=== PATIENT | female | born 1995 | race Two or more races ===

== ENCOUNTER 2021-04-24 01:39 | Inpatient (IN) | payer OTHER ==
[~2021-04-24] VITALS: Ht 152.4 cm; Wt 90.7 kg
[2021-04-24] MEDS ORDERED: CHILDREN'S ASPI81 MG PO (03:21)
[2021-04-24] MEDS ORDERED: PRENATAL CAPLE1 EAC1 PO (03:21)
== END 2021-04-26 11:09 | disposition home or self-care (01) | DRG 833 ==
LOC: LDR 01:39
PROVIDERS: ADMIT Specialist; ATTEND Specialist
PROC: 4A1HXFZ Monitoring of Products of Conception, Cardiac Rhythm, External Approach (ICD-10-PCS; principal; 2021-04-24)
PROC: BY4FZZZ Ultrasonography of Third Trimester, Single Fetus (ICD-10-PCS; 2021-04-24)
DX: O47.03 False labor before 37 completed weeks of gestation, third trimester (principal); Z3A.35 35 weeks gestation of pregnancy

== ENCOUNTER 2021-05-08 22:00 | Inpatient (IN) | payer OTHER ==
[~2021-05-08] VITALS: Ht 152.4 cm; Wt 87.1 kg
[~2021-05-08 22:00] MED LIST: CHILDREN'S ASPI81 MG PO; PRENATAL CAPLE1 EAC1 PO
== END 2021-05-09 08:56 | disposition home or self-care (01) | DRG 833 ==
LOC: LDR 22:00
PROVIDERS: ADMIT Specialist; ATTEND Specialist
PROC: 4A1HXFZ Monitoring of Products of Conception, Cardiac Rhythm, External Approach (ICD-10-PCS; principal; 2021-05-08)
DX: O47.1 False labor at or after 37 completed weeks of gestation (principal); Z3A.37 37 weeks gestation of pregnancy

== ENCOUNTER 2021-05-11 00:57 | Inpatient (IN) | payer OTHER ==
[~2021-05-11] VITALS: Ht 152.4 cm; Wt 88.0 kg
== END 2021-05-13 18:05 | disposition home or self-care (01) | DRG 806 ==
LOC: LDR 00:57 → O/R 10:56 → LDR 10:57 → O/R 05-12 11:34 → LDR 05-12 11:52 → OB/GYN 05-12 14:56
PROVIDERS: ADMIT Specialist; ATTEND Specialist
PROC: 10E0XZZ Delivery of Products of Conception, External Approach (ICD-10-PCS; principal; 2021-05-11)
PROC: 0UQG7ZZ Repair Vagina, Via Natural or Artificial Opening (ICD-10-PCS; 2021-05-11)
PROC: 4A1HXFZ Monitoring of Products of Conception, Cardiac Rhythm, External Approach (ICD-10-PCS; 2021-05-11)
DX: O42.02 Full-term premature rupture of membranes, onset of labor within 24 hours of rupture (principal); O71.4 Obstetric high vaginal laceration alone; Z37.0 Single live birth; O99.824 Streptococcus B carrier state complicating childbirth; Z3A.37 37 weeks gestation of pregnancy

== ENCOUNTER 2024-06-08 10:09 | Inpatient (IN) | payer OTHER ==
[~2024-06-08] VITALS: Ht 152.4 cm; Wt 93.0 kg
[2024-06-08] VITALS (8 sets, daily range): BP systolic 109–118; BP diastolic 43–79; O2SAT 97
[2024-06-08] MEDS ORDERED: RINGERS SOLUTION,LACTATED 1,000 ML IV SCH (10:30)
[2024-06-08] MEDS ORDERED: CEFAZOLIN SODIUM 1,000 MG VIAL IV ONE (10:30)
[2024-06-08 11:19] LABS: HEMATOCRIT 36.7 % (36.0-45.00); HEMOGLOBIN 12.7 g/dL (12.0-15.00); MEAN CELL VOLUME 84.1 fL (80.00-100.00); MEAN CORPUSCULAR HEMOGLOBIN 29.1 pg (27.00-32.0); MEAN CORPUSCULAR HGB CONC 34.6 g/dl (32.0-36.0); PLATELET COUNT 226 K/uL (150-450); RED BLOOD COUNT 4.36 M/uL (4.00-6.00)
[2024-06-08 11:28] LABS: PH,URINE 6.5 (5.0-8.0); URINE APPEARANCE Clear; URINE BILIRRUBIN Negative (NEGATIVE); URINE BLOOD Large; URINE COLOR Yellow; URINE GLUCOSE Negative (NEGATIVE); URINE KETONE Negative (NEGATIVE); URINE LEUKOCYTE Large; URINE NITRATE Negative; URINE PROTEIN Trace (NEGATIVE); URINE UROBILINOGEN 0.2 E.U./dl
[2024-06-08 11:32] LABS: URINE BACTERIA 474.9 uL (0.0-1933); URINE RBC 1162.2 uL (0.0-20.8); URINE WBC 260.6 uL (0.0-23.2)
[2024-06-08 11:43] LABS: URINE CAST 0.58 uL (0.0-1.40)
[2024-06-08] MEDS ORDERED: CEFAZOLIN SODIUM 1,000 MG VIAL IV SCH (12:00)
[2024-06-08] MEDS ORDERED: TERBUTALINE SULFATE 1 MG/ML AMPUL SUBCUTANEO ONE (13:15)
[2024-06-08] MEDS ORDERED: MAGNESIUM SULFATE IN WATER 500 ML IV SCH (13:15)
[2024-06-08] MEDS ORDERED: MAGNESIUM SULFATE IN WATER 4 GM/100 ML PIGGYBACK IV ONE (13:15)
[2024-06-08] MEDS ORDERED: BETAMETHASONE ACETATE,SOD PHOS 30 MG/5 ML ML IM ONE (13:45)
[2024-06-08] MEDS ORDERED: RINGERS SOLUTION,LACTATED 100 ML IV SCH (17:15)
[2024-06-08] MEDS ORDERED: OxyCODONE HCL/APAP UD (PERCOCET) PO PRN (17:15)
[2024-06-08] MEDS ORDERED: ACETAMINOPHEN 500 MG GEL..CAP PO PRN (17:15)
[2024-06-08] MEDS ORDERED: CARBOPROST TROMETHAMINE 250 MCG/ML AMPUL IM ONE (18:30)
[2024-06-08] MEDS ORDERED: OXYTOCIN 20 UNITS/1000ML RL PIGGYBAG IV SCH (18:45)
[2024-06-09 00:33] VITALS: BP 106/71
[2024-06-09 01:41] LABS: HEMATOCRIT 37.2 % (36.0-45.00); HEMOGLOBIN 12.6 g/dL (12.0-15.00); MEAN CELL VOLUME 84.3 fL (80.00-100.00); MEAN CORPUSCULAR HEMOGLOBIN 28.6 pg (27.00-32.0); MEAN CORPUSCULAR HGB CONC 33.9 g/dl (32.0-36.0); PLATELET COUNT 253 K/uL (150-450); RED BLOOD COUNT 4.41 M/uL (4.00-6.00); RED CELL DISTRIBUTION WIDTH 13.7 % (11.5-14.5)
[2024-06-09] MEDS ORDERED: CEPHALEXIN500 M1 PO (07:27)
[2024-06-09 07:46] VITALS: BP 114/80
[2024-06-09] MEDS ORDERED: BETAMETHASONE ACETATE,SOD PHOS 30 MG/5 ML ML IM ONE (13:45)
== END 2024-06-09 08:55 | disposition home or self-care (01) | DRG 805 ==
LOC: OBS/DEL 10:09 → LDR 12:27 → OB/GYN 18:27
PROVIDERS: ADMIT Specialist; ATTEND Specialist
PROC: 10E0XZZ Delivery of Products of Conception, External Approach (ICD-10-PCS; principal; 2024-06-08)
PROC: 3E033VJ Introduction of Other Hormone into Peripheral Vein, Percutaneous Approach (ICD-10-PCS; 2024-06-08)
PROC: 4A1HXCZ Monitoring of Products of Conception, Cardiac Rate, External Approach (ICD-10-PCS; 2024-06-08)
DX: O36.4XX0 Maternal care for intrauterine death, not applicable or unspecified (principal); O41.1220 Chorioamnionitis, second trimester, not applicable or unspecified; O41.1420 Placentitis, second trimester, not applicable or unspecified; O47.02 False labor before 37 completed weeks of gestation, second trimester; Z3A.22 22 weeks gestation of pregnancy; Z20.822 Contact with and (suspected) exposure to COVID-19; Z37.1 Single stillbirth